=== PATIENT | male | born 1960 | race Caucasian/White ===

== ENCOUNTER 2020-06-20 16:57 | Emergency (ER) | payer BC ==
[~2020-06-20] VITALS: Ht 182.9 cm; Wt 90.7 kg
[2020-06-20 17:04] VITALS: BP_SYST 170
[2020-06-20] MEDS ORDERED: cephALEXin 500 MG CAPSULE PO ONE (17:15)
[2020-06-20] MEDS ORDERED: LIDOCAINE 1%, 20 ML MDV 20 ML ONE (17:30)
[2020-06-20 17:41] VITALS: BP_SYST 170
[2020-06-20] MEDS ORDERED: BACITRACIN 1 GM OINT TP ONE (17:49)
== END 2020-06-20 17:40 | disposition home or self-care (01) ==
LOC: SED 16:57
DX: S61.412A Laceration without foreign body of left hand, initial encounter (principal); I10 Essential (primary) hypertension; Z86.73 Personal history of transient ischemic attack (TIA), and cerebral infarction without residual deficits; W26.8XXA Contact with other sharp object(s), not elsewhere classified, initial encounter; Y93.89 Activity, other specified; Y92.89 Other specified places as the place of occurrence of the external cause; Y99.8 Other external cause status
CPT/HCPCS: 12002; 99283; J2001

== ENCOUNTER 2020-07-04 17:36 | Emergency (ER) | payer BC ==
[~2020-07-04] VITALS: Ht 182.9 cm; Wt 99.8 kg
[2020-07-04 17:40] VITALS: BP_SYST 116
[2020-07-04 19:12] VITALS: BP_SYST 116
== END 2020-07-04 19:12 | disposition home or self-care (01) ==
LOC: SED 17:36
DX: S61.412D Laceration without foreign body of left hand, subsequent encounter (principal); X58.XXXD Exposure to other specified factors, subsequent encounter
CPT/HCPCS: 99281